=== PATIENT | male | born 1995 | race Caucasian/White ===

== ENCOUNTER 2019-04-17 16:41 | Emergency (ER) | payer BC, MEDICAID, SELFPAY ==
[2019-04-17 16:42] VITALS: BP 145/78; PULSE 123; RESP 15; TEMP 36.6; O2SAT 98; BMI 19.4
--- NOTE | 2019-04-17 16:59 | EKG12_ITS ---
Test Reason : SOB Blood Pressure : / mmHG Vent. Rate : 088 BPM Atrial Rate : 088 BPM P-R Int : 114 ms QRS Dur : 094 ms QT Int : 356 ms P-R-T Axes : 067 013 039 degrees QTc Int : 430 ms Normal sinus rhythm Normal ECG Confirmed by ADARSH TORRE ([id number]), science editor ZIYAD FITZPATRICK ([id number]) on 04/24/2019 9:05:27 AM Referred By: RICK Confirmed By:ADARSH TORRE
[2019-04-17 17:08] VITALS: RESP 16
--- NOTE | 2019-04-17 17:17 | ED.VIS.GEN ---
History of Present Illness Chief Complaint: Anxiety Informant: Patient Onset: Weeks - 6 Narrative: Patient comes in for evaluation of racing heart symptoms has been intermittent for the past 6 weeks however has been more frequent recently. States would last minutes however sometimes would be less. States 2 days ago had severe symptoms where he had to get on his knees for symptoms to resolve. No syncopal episodes. No chest pains. States would feel short of breath with it. Admits to tobacco history. No recent travel, surgeries, or immobilizations. No history of PE or DVT. Denies any recreational drug use. Reports he drinks coffee 1 to 2 cups a day and that is normal for him. Reports has history of trouble sleeping. He denies any increasing stressors. He states due to symptoms 2 days ago, he did online research and noted could be anxiety induced. Reports he called [facility], however he is currently staying with significant other in the area decided to come here for evaluation. States had mild racing heart in triage. No suicidal homicidal ideations. No past medical history. Prior similar symptoms: No Past Medical History - Allergies and Home Meds Allergies/Adverse Reactions: Allergies No Known Allergies Allergy (Verified 04/17/19 16:45) Primary Care Physician: NOT,DEFINED [NON-STAFF] - Smoking Status: Current some day smoker Review of Systems General: Denies: Chills, Fever, Sweats Eyes: Denies: Visual changes - bilaterally, Diplopia ENT: Denies: Rhinorrhea, Sore throat Cardiovascular: Reports: Palpitations, Heart racing. Denies: Chest pain Respiratory: Denies: Dyspnea, Cough, Dyspnea on exertion Gastrointestinal: Denies: Abdominal pain, Nausea, Vomiting, Diarrhea, Melena, Hematochezia Genitourinary: Denies: Dysuria, Hematuria, Frequency Musculoskeletal: Denies: Back pain, Extremity Pain Skin: Denies: Rash, Wounds Neurological: Denies: Headache, Weakness, Numbness Physical Exam Vital Signs/Narrative: Vital Signs Temp Pulse Resp BP Pulse Ox 04/17/19 17:08 16 04/17/19 16:42 97.9 F 123 H 15 145/78 H 98 Inital Vital Signs reviewed: Yes General: Well nourished, Well developed, No Acute Distress Head: Normocephalic, Atraumatic Eyes: Perrl, EOMI ENT: Moist mucous membranes, No rhinorrhea Neck: Supple, Nontender Cardiovascular: Regular rate, Regular rhythm, No murmurs Respiratory: No distress, CTA bilaterally, Chest nontender Abdomen: Soft, Nontender, Nondistended, Normal bowel sounds Back: Nontender, Normal Inspection Extremities: Nontender, No edema Skin: Normal color, No rash Neurological: Alert, Oriented x3, Cranial nerves II-XII grossly intact, Normal Strength, Normal Sensation Psychological: Normal affect, Normal Mood Diagnostic/Tx/Re-eval - EKG Initial EKG Interpretation: Sinus Rhythm - Sinus rate of 88, no ST or T wave changes. QTc 430. - Medical Decision Making Initial discussed with patient, appears to have palpitations I would be more frequent. EKG however notes sinus rhythm with a normal heart rate. Patient set up with a 48-hour Holter monitor. Given follow-up as an outpatient further testing. Discussed decreasing caffeine intake. After nursing discussed with patient he admits that there is been increasing stressors. Social work did see him in the ED will give him follow-up with 180 as an outpatient for further discussion. Patient not suicidal homicidal. Follow-up was all given to the patient. All questions were answered. ED Disposition - Plan for ED Patient: Disposition: Home or Assisted Living Diagnosis: Palpitations, Anxiety Instructions: Anxiety Reaction, Palpitations Referrals: Judie Bautista MD [STAFF PHYSICIAN] - 5-7 Days Additional Instructions: Wear the Holter monitor for 2 days, return. Follow-up as an outpatient. Follow-up with 180 as discussed with social work also.
--- NOTE | 2019-04-17 17:50 | CM.ED ---
SOCIAL WORK INFORMANT: NURSE REASON FOR REFERRAL: MENTAL HEALTH CHIEF COMPLIANT: PATIENT PRESENTS TO EMERGENCY DEPARTMENT WITH ANXIETY. PATIENT STATES STARTS TO FEEL LIKE HE IS HAVING A PANIC ATTACK. PATIENT REPORTS HEART WAS RACING AND FELT LIKE I WAS GOING TO . LIVING SITUATION: PATIENT REPORTS LIVES HOME WITH SIGNIFICANT OTHER AND DAUGHTER. FINANCIAL: LIMITED INCOME. PATIENT CURRENTLY IS SELF-PAY. PATIENT REPORTS HAS TURNED IN INFORMATION FOR MEDICAID. PATIENT GIVEN CONTACT NUMBER FOR [facility] TO CHECK ON STATUS. MENTAL HEALTH HISTORY/TREATMENT: PATIENT REPORTS BELIEVES TO HAVE ALWAYS HAD ANXIETY. PATIENT STATES ANXIETY HAS BECOME WORSE SINCE RELEASE FROM [facility]. PATIENT REPORTS WAS RELEASED END OF 2015 AFTER SERVING 2 YEARS. PATIENT REPORTS SINCE THEN HAS BEEN HAVING TROUBLE SLEEPING, VIVID DREAMS OF BEING LOCKED UP. PATIENT STATES BELIEVES TO HAVE PTSD FROM TIME SPENT IN [facility]. PATIENT DENIES ANY PREVIOUS TREATMENT. SUBSTANCE ABUSE HISTORY: PATIENT REPORTS RECOVERING HEROIN ADDICT. PATIENT STATES DRUG USE WAS THE REASON HE WAS IN [facility]. PATIENT STATES WHEN THE ANXIETY GETS BAD, FEELS LIKE USING WOULD HELP. ASSESSMENT: MET WITH PATIENT IN ROOM. INTRODUCED ROLE AND REASON FOR REFERRAL. PATIENT EXPLAINED TIME SPENT IN [facility] AND HOW LIFE HAS BEEN SINCE RELEASE. PATIENT REPORTS IS RECOVERING HEROIN ADDICT AND HAS HAD TIMES OF RELAPSE. DISCUSSED TREATMENT OPTIONS AND PROVIDED PATIENT WITH INFORMATION [facility]. PATIENT DOES NOT HAVE PRIMARY CARE PHYSICIAN. LIST OF LOCAL PRIMARY CARE PROVIDERS GIVEN. PATIENT TO FOLLOW UP WITH [facility] [employer] REGARDING MEDICAID. ENCOURAGEMENT AND EMOTIONAL SUPPORT PROVIDED. UPDATED DR. CABRERA AND NURSE ON THE ABOVE. PLAN: HOME WITH RESOURCES PROVIDED. Daisy CERRATO MSW, SUPERVISOR [employer].
[2019-04-17 18:26] VITALS: RESP 18
== END 2019-04-17 18:26 | disposition home or self-care (01) ==
PROVIDERS: Emergency Provider Emergency Medicine
DX: R00.2 Palpitations (principal); F41.9 Anxiety disorder, unspecified; F17.200 Nicotine dependence, unspecified, uncomplicated
CPT/HCPCS: 93005; 99282

== ENCOUNTER → 2019-04-17 18:17 | Outpatient (CLI) | payer BC, MEDICAID, SELFPAY ==
[2019-04-17 16:42] VITALS: BMI 19.4
== END ==
PROVIDERS: Referring Provider Emergency Medicine; Visit Provider Emergency Medicine
DX: R00.2 Palpitations (principal)
CPT/HCPCS: 93225; 93226

== ENCOUNTER → 2020-10-01 13:03 | Outpatient (CLI) | payer BC, MEDICAID, SELFPAY ==
[2020-09-13 08:41] VITALS: BMI 18.9
[2020-10-01 13:48] LABS: Absolute Lymphocyte Count 2.25 X10^3/uL (0.83-4.51); Absolute Neutrophil Count 1.9 X10^3/uL (2.0-7.7); Basophil# 0.06 X10^3/uL; Basophil% 1.2 % (0-1); Eosinophil# 0.47 X10^3/uL; Eosinophils% 9.1 % (0-5); Hematocrit 44.2 % (40-54); Hemoglobin 14.6 g/dL (13.0-16.5); Lymphocyte # 2.25 X10^3/ul (4.0); Lymphocyte % 43.4 % (19-41); Mean Corpuscular Hgb 27.7 pg (27.0-32.0); Mean Corpuscular Volume 83.9 fL (80-94); Mean Platelet Vol. 9.5 fl (6.2-12.0); Monocyte# 0.53 X10^3/uL; Monocyte% 10.2 % (0-10); NRBC Flagged by Analyzer 0 % (0-5); Neutrophil # 1.87 X10^3/uL (2.7-7.7); Neutrophil % 35.9 % (47-70); Platelet Count 207 K/mm3 (150-450); RBC Distribution Width CV 13.2 % (11.6-14.6); Red Blood Count 5.27 M/mm3 (4.6-6.2); White Blood Count 5.2 K/mm3 (4.4-11.0)
[2020-10-01 13:53] LABS: International Normalized Ratio 1.1; Prothrombin Time (Protime)PT. 13.7 SECONDS (11.7-14.9)
[2020-10-01 14:18] LABS: AST(SGOT) 440 U/L (15-37); Alanine Aminotransfer ALT/SGPT 1025 U/L (16-61); Albumin, Serum 4.2 g/dL (3.2-5.0); Alkaline Phosphatase 79 U/L (45-117); Anion Gap 4 (5-15); BUN 6 mg/dL (7-18); BUN/Creat Ratio 7.5 RATIO (10-20); Bilirubin, Direct 0.27 mg/dL (0.00-0.30); Calcium,Total 9.3 mg/dL (8.5-10.1); Chloride 101 mmol/L (98-107); Cholesterol 141 mg/dL (200); EST Glomerular Filtration Rate 125 mL/min (>60); Est Glom Filt Rate - Afr Amer 151 mL/min (>60); Globulin 4.4 g/dL (2.2-4.2); Glucose 82 mg/dL (74-106); Potassium 3.6 mmol/L (3.5-5.1); Protein, Total 8.6 g/dL (6.4-8.2); Sodium Level 135 mmol/L (136-145); Triglycerides 34 mg/dL
[2020-10-01 14:32] LABS: HIV - WCH Non-Reactive (Nonreactive); Hepatitis B Surface Antibody Non-Reactive; Hepatitis B Surface Antigen Non-Reactive (Nonreactive); Syphilis Antibodies Non-reactive
[2020-10-03 20:07] LABS: Comment 2b (.); HCV Quant. RNA PCR 551000 IU/mL (.); Hepatitis B Core Ab Total Negative (Negative)
[2020-10-04 12:29] LABS: HCV log 10 5.741 (.); Hepatitis A AB, Total Positive (Negative)
== END ==
PROVIDERS: Referring Provider Internal Medicine Infectious Disease; Visit Provider Internal Medicine Infectious Disease
DX: B18.2 Chronic viral hepatitis C (principal)
CPT/HCPCS: 36415; 80053; 82248; 82465; 84478; 85025; 85610; 86703; 86704; 86706; 86708; 86780; 87340; 87522; 87902

== ENCOUNTER 2022-05-03 17:30 | Emergency (ER) | payer MEDICAID, SELFPAY ==
[2022-05-03 17:31] VITALS: BP 129/80; PULSE 77; RESP 16; TEMP 36.3; O2SAT 100; BMI 19.7
--- NOTE | 2022-05-03 17:49 | ED.VIS.GI ---
HPI HPI - GI History of Present Illness Chief Complaint: Abd Pain Informant: patient Abdominal Pain/Flank Pain Onset: Days (3) Timing: Continuous Quality: Dull Location: Diffuse Worsened by: Movement and - (Bending forward) Relieved by: Nothing Nausea/Vomiting/Emesis GI Symptom: Negative for Nausea or Vomiting Diarrhea/Melena/Hematochezia GI Symptom: Negative for Diarrhea, Melena or Hematochezia Associated Symptoms Associated Symptoms: Positive for Frequency; Negative for Dysuria or Hematuria Narrative Narrative: Patient presents with abdominal pain that has been gradually getting worse over the last 3 days. Patient states the pain is diffuse across his abdomen. Patient describes the pain as dull. Patient states pain radiates into his back. Patient states it is worse whenever he bends forward and moves. Patient states it is better when he is able to remain still. Patient denies any nausea or vomiting. Patient denies any diarrhea, melena, or hematochezia. Patient admits to some urinary frequency but denies any dysuria or hematuria. Patient denies any fevers or chills. Patient states he has been feeling somewhat constipated over the past few days. [facility] Medical History (Updated 05/03/22 @ 20:[address] Kel Ventura DO) Hepatitis A Hepatitis C Liver disease Lower back pain SOB (shortness of breath) Home Medications buprenorphine 8 mg-naloxone 2 mg sublingual film (Suboxone) 2 film sublingual DAILY 09/13/20 [History Last Taken Unknown] Allergy/AdvReac Type Severity Reaction Status Date / Time No Known Allergies Allergy Verified 05/03/22 17:31 Family History (Updated 09/13/20 @ 08:44 by Xena Marcelino RN) Father Heart disease kindney stones Mother Bipolar 1 disorder Social History Smoking Status: Current every day smoker tobacco type: cigarettes ROS ROS ED Constitutional Constitutional ED: Denies chills or fever(s) Eyes Eyes: Denies blurry vision or change in vision ENT ENT ED: Denies rhinorrhea or sore throat Cardiovascular Cardiovascular: Denies chest pain or palpitations Respiratory/Chest Respiratory/Chest: Denies cough or dyspnea Gastrointestinal Gastrointestinal: Reports abdominal pain and constipation; Denies diarrhea, melena, nausea or vomiting Genitourinary Genitourinary ED: Denies dysuria or hematuria Musculoskeletal Musculoskeletal: Reports back pain; Denies neck pain Integumentary Denies abscess or rash Neurologic Neurologic: Denies headache(s) or weakness Allergic/Immunologic Allergic/Immunologic ED: Denies mouth swelling or urticaria EXAM Physical Exam Const Vital Signs: 05/03/22 17:31 Temperature 97.3 F L Temperature Source Temporal Pulse Rate 77 Respiratory Rate 16 Blood Pressure 129/80 H Blood Pressure Mean 96 Pulse Ox 100 Oxygen Delivery Method Room Air Positive well nourished and well developed General Appearance ED: well developed HEENT Reports moist mucous membranes Neck supple and no JVD Resp normal respiratory effort and clear to auscultation bilaterally Cardio regular rate, regular rhythm and no murmurs GI normal to inspection, nondistended, normoactive bowel sounds Palpation: soft and tender epigastric, LLQ, RLQ, LUQ, RUQ, periumbilical and suprapubic Extremity normal to inspection General Extremety ED: Negative for edema or tenderness General Extremity: Negative for edema Neuro oriented x3, CN's II-XII intact bilaterally, moves all extremities and no sensory deficits noted Sensorium / Orientation: alert Motor Exam: strength 5/5 throughout Psych mental status grossly normal Skin no rashes or lesions noted MDM MDM MDM Narrative Medical decision making narrative: Patient given IV fluids, morphine, and Zofran. CBC was within normal limits. Comprehensive metabolic profile was essentially within normal limits. Lipase was normal. Urinalysis does not show any evidence of urinary tract infection or hematuria. CT scan of the abdomen pelvis was obtained. There is moderate stool in the colon. There is no evidence of obstruction. There is no evidence of appendicitis. There is no acute abnormality noted. Patient was advised of his findings. Patient was instructed to use MiraLAX at home. Patient was instructed to follow-up with his primary care physician in 5 to 7 days. Patient understood and was agreeable with the plan. All questions were answered. Lab Data Attestation: I reviewed the patient's lab results. Labs: Laboratory Results - last 24 hr 05/03/22 05/03/22 05/03/22 18:10 18:10 19:00 WBC 8.3 RBC 5.27 Hgb 15.3 Hct 43.7 MCV 82.9 MCH 29.0 MCHC 35.0 RDW Std Deviation 37.5 RDW Coeff of Joelle 12.6 Plt Count 211 MPV 9.1 Immature Gran % (Auto) 0.200 Neut % (Auto) 63.7 Lymph % (Auto) 24.1 [place] % (Auto) 5.7 Eos % (Auto) 5.5 H Baso % (Auto) 0.8 Absolute Neuts (auto) 5.3 Absolute Lymphs (auto) 2.00 Nucleated RBC % 0 Sodium 140 Potassium 4.2 Chloride 104 Carbon Dioxide 29.0 Anion Gap 7 BUN 10 Creatinine 0.78 Estim Creat Clear Calc 125.22 Est GFR (MDRD) Af Amer 152 Est GFR (MDRD) Non-Af 126 BUN/Creatinine Ratio 12.7 Glucose 80 Calcium 9.1 Total Bilirubin 0.40 AST 26 ALT 35 Alkaline Phosphatase 65 Total Protein 8.3 H Albumin 4.1 Globulin 4.2 Albumin/Globulin Ratio 1.0 Lipase 111 Urine Color Yellow Urine Clarity Clear Urine pH 7.0 Ur Specific [place] 1.010 Urine Protein Negative Urine Glucose (UA) Normal Urine Ketones Negative Urine Occult Blood Negative Urine Nitrite Negative Urine Bilirubin Negative Urine Urobilinogen Normal Ur Leukocyte Esterase Negative Urine RBC 0 SEEN Urine WBC 0 SEEN Ur Squamous Epith Cells 0-5 SEEN Urine Bacteria 0 SEEN Urine Mucus 0 SEEN Radiography Diagnostic Testing: Clinical Impression(s) from Imaging Studies Abdomen/Pelvis CT 05/03/22 17:54 IMPRESSION: Moderate stool in the colon which may represent constipation. No other acute abnormalities are identified. Electronically Signed: Jj Womack MD at 19:41 EST Reading Location ID and State: [address] [place] [address] Tel , Service support , Discharge Plan Triage Chief Complaint: Abd Pain ED Provider: Kel Ventura Dx/Rx/DC Orders Clinical Impression: Abdominal pain, Constipation Instructions: ED Constipation (Adult), ED Abdominal Pain Unkn Cause Male... Prescriptions: No Action buprenorphine-naloxone [Suboxone] 8-2 mg film 2 film SL DAILY Rx Instructions: place 1 strip/tab under (each) side of tongue Primary Care Provider: Care Physician,No Primary Referrals: Care Physician,No Primary [Primary Care Provider] - Disposition Disposition: Home, Self Care
--- NOTE | 2022-05-03 17:54 | CT_ITS ---
EXAM: CT ABDOMEN AND PELVIS WITH INTRAVENOUS CONTRAST CLINICAL INDICATION: Abdominal pain -- IV PO Contrast TECHNIQUE: Helically acquired images were obtained of the abdomen and pelvis with intravenous contrast. This CT exam was performed using one or more of the following dose reduction techniques: automated exposure control, adjustment of the mA and/or kV according to patient size, and/or use of iterative reconstruction technique. This report was created using AOL report generation technology. CONTRAST: Oral and amp; IV Gastrografin and amp; 100mL Isovue-370 COMPARISON: None. FINDINGS: LOWER THORAX: Unremarkable. Lung bases are clear. No cardiomegaly. No significant pericardial effusion. ABDOMEN: LIVER: Unremarkable. Homogeneous. No focal mass. GALLBLADDER AND BILE DUCTS: Unremarkable. No calcified gallstones. No gallbladder distention or wall edema. No intra- or extrahepatic biliary ductal dilation. PANCREAS: Unremarkable. No focal cystic or solid mass. SPLEEN: Unremarkable. Normal size without focal cystic or solid mass. ADRENALS: Unremarkable. No nodules. KIDNEYS AND URETERS: Unremarkable. Normal renal size and position. No hydronephrosis. STOMACH AND BOWEL: There is moderate stool seen throughout the colon which may represent constant patient. No stomach or bowel distention. No focal inflammatory change. PELVIS: APPENDIX: No evidence of acute appendicitis. BLADDER: Unremarkable. REPRODUCTIVE: Unremarkable as visualized. No mass. ABDOMEN and PELVIS: INTRAPERITONEAL SPACE: Unremarkable. No ascites or other fluid collection. No free air. BONES/JOINTS: Unremarkable. No suspicious lytic or blastic abnormality. SOFT TISSUES: Unremarkable. No discrete abdominal or pelvic wall hernia. VASCULATURE: Unremarkable. Abdominal aorta is non-dilated. LYMPH NODES: Unremarkable. No enlarged lymph nodes. CT/Abdomen/Pelvis WITH Contrast IMPRESSION: Moderate stool in the colon which may represent constipation. No other acute abnormalities are identified. Electronically Signed: Jj Womack MD at 19:41 EST ,
[2022-05-03 18:17] LABS: Absolute Neutrophil Count 5.3 X10^3/uL (2.0-7.7); Basophil# 0.07 X10^3/uL; Basophil% 0.8 % (0-1); Eosinophil# 0.46 X10^3/uL; Eosinophils% 5.5 % (0-5); Hematocrit 43.7 % (40-54); Hemoglobin 15.3 g/dL (13.0-16.5); Lymphocyte % 24.1 % (19-41); Mean Corpuscular Volume 82.9 fL (80-94); Mean Platelet Vol. 9.1 fl (6.2-12.0); Monocyte# 0.47 X10^3/uL; Monocyte% 5.7 % (0-10); NRBC Flagged by Analyzer 0 % (0-5); Neutrophil # 5.28 X10^3/uL (2.7-7.7); Neutrophil % 63.7 % (47-70); Platelet Count 211 K/mm3 (150-450); RBC Distribution Width CV 12.6 % (11.6-14.6); RBC Distribution Width SD 37.5 fl (35.1-43.9); Red Blood Count 5.27 M/mm3 (4.6-6.2); White Blood Count 8.3 K/mm3 (4.4-11.0)
[2022-05-03 18:33] LABS: AST(SGOT) 26 U/L (15-37); Alanine Aminotransfer ALT/SGPT 35 U/L (16-61); Albumin, Serum 4.1 g/dL (3.2-5.0); Alkaline Phosphatase 65 U/L (45-117); Anion Gap 7 (5-15); BUN 10 mg/dL (7-18); BUN/Creat Ratio 12.7 RATIO (10-20); Calcium,Total 9.1 mg/dL (8.5-10.1); Chloride 104 mmol/L (98-107); Creatinine, Serum 0.78 mg/dL (0.70-1.30); EST Glomerular Filtration Rate 126 mL/min (>60); Est Glom Filt Rate - Afr Amer 152 mL/min (>60); Estimated Creatinine Clearance 125.22 ml/min; Globulin 4.2 g/dL (2.2-4.2); Glucose 80 mg/dL (74-106); Lipase 111 U/L (73-393); Potassium 4.2 mmol/L (3.5-5.1); Protein, Total 8.3 g/dL (6.4-8.2); Sodium Level 140 mmol/L (136-145)
[2022-05-03] MEDS: 0.9% Normal Saline 1,000 ML 1000 ML IV (18:49)
[2022-05-03] MEDS: Ondansetron 4 MG/2 ML Vial IV (18:49)
[2022-05-03] MEDS: Morphine 4 MG/ML Syringe IV (18:49)
[2022-05-03 19:06] LABS: Bacteria 0 SEEN /hpf (None Seen); Mucous, Urine 0 SEEN /hpf (<or=2+); Red Blood Cells-Urine 0 SEEN /hpf (0-5); White Blood Cells 0 SEEN /hpf (0-5)
[2022-05-03 19:10] LABS: Color, Urine Yellow (Yellow); Glucose, Dipstick Normal (Normal); Ketone-Dipstick Negative (Negative); Leukocyte Esterase-Dipstick Negative /ul (Negative); Nitrite-Dipstick Negative (Negative); Occult Blood-Urine Negative /ul (Negative); Protein-Dipstick Negative (Negative); Urine Bilirubin Dipstick Negative (Negative); Urine Clarity Clear (Clear); Urine Urobilinogen Normal (Normal)
[2022-05-03 19:23] LABS: Squamous Epithelial Cells - UA 0-5 SEEN /hpf (0-5)
[2022-05-03 21:00] VITALS: BP 132/78; PULSE 78; RESP 16; O2SAT 98
== END 2022-05-03 21:08 | disposition home or self-care (01) ==
PROVIDERS: Emergency Provider Emergency Medicine; Visit Provider Emergency Medicine
DX: R10.9 Unspecified abdominal pain (principal); R35.0 Frequency of micturition; F17.210 Nicotine dependence, cigarettes, uncomplicated; K59.00 Constipation, unspecified
CPT/HCPCS: 74177; 80053; 81001; 83690; 85025; 96361; 96374; 96375; 99283; J7030; Q9967; J2405

== ENCOUNTER 2024-03-18 00:19 | Observation (INO) | payer MEDICAID, SELFPAY ==
[2024-03-18 00:21] VITALS: BP 137/95; PULSE 88; RESP 18; TEMP 35.7; O2SAT 100; BMI 21.1
[2024-03-18 02:20] VITALS: BP 117/82; PULSE 77; RESP 12; O2SAT 99
--- NOTE | 2024-03-18 02:59 | EKG12_ITS ---
Test Reason : PALPS Blood Pressure : / mmHG Vent. Rate : 087 BPM Atrial Rate : 087 BPM P-R Int : 114 ms QRS Dur : 082 ms QT Int : 342 ms P-R-T Axes : 067 088 057 degrees QTc Int : 411 ms Normal sinus rhythm with sinus arrhythmia Normal ECG Confirmed by DAWSON PALOMINO, OTTO ([id number]), associate editor TATIANA GRIFFIN ([id number]) on 03/21/2024 2:03:09 PM Referred By: Confirmed By:OTTO OSMAN MD
[2024-03-18 03:17] VITALS: BP 128/74; PULSE 85; RESP 18; TEMP 36.9; O2SAT 97
[2024-03-18 03:18] LABS: Absolute Neutrophil Count 6.6 X10^3/uL (2.0-7.7); Basophil# 0.05 X10^3/uL; Basophil% 0.5 % (0-1); Eosinophil# 0.18 X10^3/uL; Eosinophils% 1.7 % (0-5); Hematocrit 44.4 % (40-54); Hemoglobin 15.4 g/dL (13.0-16.5); Lymphocyte % 25.5 % (19-41); Mean Corp Hgb Conc 34.7 g/dL (32-36); Mean Corpuscular Hgb 28.7 pg (27.0-32.0); Mean Corpuscular Volume 82.8 fL (80-94); Mean Platelet Vol. 9.5 fl (6.2-12.0); Monocyte# 1.06 X10^3/uL; NRBC Flagged by Analyzer 0 % (0-5); Neutrophil # 6.56 X10^3/uL (2.7-7.7); Neutrophil % 62.1 % (47-70); Platelet Count 255 K/mm3 (150-450); RBC Distribution Width CV 12.7 % (11.6-14.6); Red Blood Count 5.36 M/mm3 (4.6-6.2); White Blood Count 10.6 K/mm3 (4.4-11.0)
[2024-03-18] MEDS: LORazepam 1 MG Tablet PO (03:23)
[2024-03-18 03:35] LABS: Amphetamine Urine VISTA NEGATIVE (<1000 ng/mL); Barbiturate Urine VISTA NEGATIVE (< 200 ng/mL); Benzodiazepine Urine VISTA NEGATIVE (< 200 ng/mL); Cocaine Urine VISTA NEGATIVE (< 300 ng/mL); Ecstacy Urine VISTA NEGATIVE (< 500 ng/mL); Methadone Urine VISTA NEGATIVE (< 300 ng/mL); PCP Urine VISTA NEGATIVE (< 25 ng/mL); THC Urine VISTA NEGATIVE (< 50 ng/mL); Vista UDS pH Range 6
[2024-03-18] MEDS: Mag Hydrox/Al Hydrox/Simeth 30 ML UDC PO (03:43)
[2024-03-18] MEDS: Lidocaine 2% Viscous15 ML UDC 15 ML PO (03:43)
[2024-03-18 04:00] VITALS: PULSE 100; RESP 18; O2SAT 97
[2024-03-18 04:05] LABS: Anion Gap 4 (5-15); BUN 8 mg/dL (7-18); BUN/Creat Ratio 8.7 RATIO (10-20); Calcium,Total 9.4 mg/dL (8.5-10.1); Chloride 106 mmol/L (98-107); Creatinine, Serum 0.92 mg/dL (0.70-1.30); EST Glomerular Filtration Rate 103 mL/min (>60); Est Glom Filt Rate - Afr Amer 124 mL/min (>60); Estimated Creatinine Clearance 111.73 ml/min; Glucose 112 mg/dL (74-106); Potassium 3.8 mmol/L (3.5-5.1); Sodium Level 137 mmol/L (136-145)
--- NOTE | 2024-03-18 04:05 | ED.VIS.CHEST ---
HPI History of Present Illness Chief Complaint: Palpitations Narrative Narrative: Patient is a 28-year-old male with past medical history of hepatitis A, hepatitis C, low back pain who presented to the emergency department with a chief complaint of concerns of withdrawal. Patient states that he normally snorts fentanyl however he states that he believes that he had obtained a different drug and is now going through withdrawal. He states that he tried take muscle relaxers for his restless legs. Patient states that he is not feeling well and he wants to go through detox. Denies any IV drug use. [facility] Medical History Hepatitis C Hepatitis A Lower back pain Liver disease SOB (shortness of breath) Home Medications ?Medication ?Instructions ?Recorded ?Last Taken ?Type buprenorphine 8 mg-naloxone 2 mg 2 film sublingual DAILY 09/13/20 Unknown History sublingual film (Suboxone) Allergy/AdvReac Type Severity Reaction Status Date / Time No Known Allergies Allergy Verified 03/18/24 00:21 Family History Father Heart disease kindney stones Mother Bipolar 1 disorder Social History Smoking Status: Current every day smoker tobacco type: cigarettes ROS ROS ED ROS Narrative Constitutional: Denies any fevers, chills, headaches, lightness, dizziness Eyes: Denies change in vision double vision blurry vision Cardiovascular: Denies chest pain or palpitations Respiratory: Denies cough or wheezing shortness of breath Abdomen: Denies any abdominal pain nausea vomit diarrhea : Denies any urinary symptoms Neurological: Denies numbness, weakness, tingling Musculoskeletal: States he has chronic back pain Skin: Denies rashes or lesions EXAM Physical Exam Narrative Exam Narrative: General: Patient lying in bed rest comfortably did not appear to be in acute distress Head: Atraumatic, normocephalic Eyes: PERRL bilaterally, EOMI bilateral, no conjunctival injection noted Neck: Soft, supple, trachea midline Cardiovascular: Regular rate and rhythm no murmurs gallops rubs noted Respiratory: Clear to auscultation bilaterally no rales rhonchi or wheezes noted Abdomen: Soft, nondistended, no tenderness palpation Extremities: +5/5 strength noted in the bilateral upper and lower extremities, no pedal edema on exam, radial pulses +2/4 in the bilateral upper extremities Neurological: Patient is following commands knew that he was at [facility] there is 2023 Skin: Warm, dry, intact Const Vital Signs: 03/18/24 00:21 03/18/24 02:20 03/18/24 02:39 Temperature 96.3 F L Temperature Source Temporal Pulse Rate 88 77 Respiratory Rate 18 12 Respiratory Effort Normal Non-Labored Blood Pressure 137/95 H 117/82 H Blood Pressure Mean 109 93 Pulse Ox 100 99 Oxygen Delivery Method Room Air Room Air 03/18/24 03:17 03/18/24 04:00 Temperature 98.5 F Temperature Source Pulse Rate 85 100 Respiratory Rate 18 18 Respiratory Effort Blood Pressure 128/74 H Blood Pressure Mean 92 Pulse Ox 97 97 Oxygen Delivery Method Room Air MDM MDM MDM Narrative Medical decision making narrative: Patient is a 28-year-old male who presented for detox. Patient will have workup performed here on the differential diagnose includes but not limited to withdrawal, anxiety. Once workup is seen and reviewed he will be reevaluated. Patient given Ativan and a GI cocktail as he states he is having reflux of type symptoms. Patient states that he last used fentanyl this morning. Patient's CBC reviewed showed no evidence leukocytosis white blood count normal at 10.6, hemoglobin stable 15.4, platelet count normal at 255. Patient sodium normal 137, potassium normal 3.8, creatinine normal at 0.92. Patient's drug screen was negative, alcohol level was 4. At this point time patient is requesting detox therefore he will be admitted to the hospital. Did discuss case with Dr. Renee who accept patient for admission. Patient notified with all question concerns answered. Lab Data Labs: Laboratory Results - last 24 hr 03/18/24 03/18/24 03:07 03:09 WBC 10.6 RBC 5.36 Hgb 15.4 Hct 44.4 MCV 82.8 MCH 28.7 MCHC 34.7 RDW Std Deviation 38.0 RDW Coeff of Joelle 12.7 Plt Count 255 MPV 9.5 Immature Gran % (Auto) 0.200 Neut % (Auto) 62.1 Lymph % (Auto) 25.5 [place] % (Auto) 10.0 Eos % (Auto) 1.7 Baso % (Auto) 0.5 Absolute Neuts (auto) 6.6 Absolute Lymphs (auto) 2.70 Nucleated RBC % 0 Sodium 137 Potassium 3.8 Chloride 106 Carbon Dioxide 27.0 Anion Gap 4 L BUN 8 Creatinine 0.92 Estim Creat Clear Calc 111.73 Est GFR (MDRD) Af Amer 124 Est GFR (MDRD) Non-Af 103 BUN/Creatinine Ratio 8.7 L Glucose 112 H Calcium 9.4 Urine Opiates Screen NEGATIVE Urine Methadone Screen NEGATIVE Ur Barbiturates Screen NEGATIVE Ur Phencyclidine Scrn NEGATIVE Ur Amphetamines Screen NEGATIVE MDMA (Ecstasy) Screen NEGATIVE U Benzodiazepines Scrn NEGATIVE Urine Cocaine Screen NEGATIVE U Cannabinoids Screen NEGATIVE Ur Drug Screen Comment Ethyl Alcohol 4.0 Discharge Plan Triage Chief Complaint: Palpitations ED Provider: Hipolito Garrison Dx/Rx/DC Orders Clinical Impression: Opiate withdrawal Primary Care Provider: Care Physician,No Primary
--- NOTE | 2024-03-18 05:02 | HP.PCM.HOS_ITS ---
[facility] - General General Date of Admission: 03/18/24 Date of Service: 03/18/24 Chief Complaint: Palpitations and Leg Tremors with suspected Fentanyl Withdrawal. HPI Narrative CHARLY KELLER, is a 28 M with a past medical history of tobacco abuse, hepatitis, A, hepatitis C and history of chronic opiate abuse with Fentanyl via snorting; also already on Suboxone who presents to [facility] ER complaining of palpitations and leg tremors with suspected fentanyl withdrawal. Mr. Keller reports his symptoms began approximately 6 hours prior to admission after he obtained what he thought was fentanyl from his dealer and then immediately began to go into withdrawal with restless legs and palpitations with him now suspecting he snorted Xylazine (horse tranquilizer). He also admits to overall not feeling very well and wants to go through the opiate detoxification program. There was no report of fever, chills, diarrhea or constipation but he does admit to severe anxiety, nausea and heartburn but he does admit to persistent stuffiness in his Right nostril since his last use. In the ER he was diagnosed with acute opiate withdrawal in the setting of chronic opiate abuse complicated by severe anxiety and GI upset with nausea and heartburn and he was then admitted to the general medical floor for treatment under the opiate detoxification protocol for status expected to be greater than 2 midnights. [facility] Medical History Hepatitis C Hepatitis A Lower back pain Liver disease SOB (shortness of breath) Home Medications ?Medication ?Instructions ?Recorded ?Last Taken ?Type buprenorphine 8 mg-naloxone 2 mg 2 film sublingual DAILY 09/13/20 Unknown History sublingual film (Suboxone) Allergy/AdvReac Type Severity Reaction Status Date / Time No Known Allergies Allergy Verified 03/18/24 00:21 Family History Father Heart disease kindney stones Mother Bipolar 1 disorder Social History Smoking Status: Current every day smoker tobacco type: cigarettes ROS ROS Narrative Review of systems: General: Patient denies fever or chills. HENT: Denies headache, denies stuffy nose, denies sore throat EYES: Denies changes in vision or discharge from eyes. Resp: Denies cough, denies shortness of breath Cardiac: Patient admits to palpitations but he denies chest pain. GI: Patient admits to GI upset with nausea and heartburn. : Denies changes in urination Extremity: Denies swelling Musculoskeletal: Feels somewhat generally weak and unwell but denies arthralgias or myalgias. Neuro: Patient denies headache, paresthesias or focal neurologic deficits. Heme: Denies any bleeding or bruising Skin: Denies rashes Psychiatric: Patient admits to heightened anxiety that is better as he received IV Ativan in the ER. He denies suicidal or homicidal ideation. Endocrine: No polyuria, polydipsia or polyphagia. The rest of the 14 point ROS was negative except for positives in HPI. Vital Signs Vital Signs Vital Signs: 03/18/24 00:21 03/18/24 02:20 03/18/24 02:39 Temperature 96.3 F L Temperature Source Temporal Pulse Rate 88 77 Respiratory Rate 18 12 Respiratory Effort Normal Non-Labored Blood Pressure 137/95 H 117/82 H Blood Pressure Mean 109 93 Pulse Ox 100 99 Oxygen Delivery Method Room Air Room Air 03/18/24 03:17 03/18/24 04:00 Temperature 98.5 F Temperature Source Pulse Rate 85 100 Respiratory Rate 18 18 Respiratory Effort Blood Pressure 128/74 H Blood Pressure Mean 92 Pulse Ox 97 97 Oxygen Delivery Method Room Air Weight Weight: 147 lb Body Mass Index (BMI) 21.1 Physical Exam Const alert, oriented x3 and average body habitus Constitutional Narrative: [id number] distress noted. General Appearance: cooperative HEENT normocephalic, head/scalp atraumatic, hearing grossly normal bilaterally and moist oral mucous membranes Eyes PERRL and EOMs intact bilaterally Neck no lymphadenopathy and supple Resp normal respiratory effort, no retractions, no use of accessory muscles and clear to auscultation bilaterally Cardio regular rate and regular rhythm GI normal to inspection, nondistended, normoactive bowel sounds, soft to palpation, non-tender and non-distended Extremity normal to inspection, full ROM and no clubbing, cyanosis or edema Skin Skin Narrative: Patient has no evidence of rash, jaundice or abscess. Neuro oriented x3, CN's II-XII intact bilaterally, moves all extremities and no focal motor deficits Sensorium / Orientation: awake, alert, oriented to person, oriented to place and oriented to time Speech: speech normal Psych Mood & Affect: anxious Results Medical Records Data Attestation: I reviewed the patient's medical records Lab / Micro Data Attestation: I reviewed the patient's lab results. 03/18/24 03:09 03/18/24 03:09 Labs: Laboratory Results - last 24 hr 03/18/24 03:07: Urine Opiates Screen NEGATIVE, Urine Methadone Screen NEGATIVE, Ur Barbiturates Screen NEGATIVE, Ur Phencyclidine Scrn NEGATIVE, Ur Amphetamines Screen NEGATIVE, MDMA (Ecstasy) Screen NEGATIVE, U Benzodiazepines Scrn NEGATIVE, Urine Cocaine Screen NEGATIVE, U Cannabinoids Screen NEGATIVE, Ur Drug Screen Comment 03/18/24 03:09: WBC 10.6, RBC 5.36, Hgb 15.4, Hct 44.4, MCV 82.8, MCH 28.7, MCHC 34.7, RDW Std Deviation 38.0, RDW Coeff of Joelle 12.7, Plt Count 255, MPV 9.5, Immature Gran % (Auto) 0.200, Neut % (Auto) 62.1, Lymph % (Auto) 25.5, [place] % (Auto) 10.0, Eos % (Auto) 1.7, Baso % (Auto) 0.5, Absolute Neuts (auto) 6.6, Absolute Lymphs (auto) 2.70, Nucleated RBC % 0, Sodium 137, Potassium 3.8, Chloride 106, Carbon Dioxide 27.0, Anion Gap 4 L, BUN 8, Creatinine 0.92, Estim Creat Clear Calc 111.73, Est GFR (MDRD) Af Amer 124, Est GFR (MDRD) Non-Af 103, BUN/Creatinine Ratio 8.7 L, Glucose 112 H, Calcium 9.4, Ethyl Alcohol 4.0 Assessment & Plan Assessment/Plan (1) Opiate withdrawal: (2) Opiate abuse, continuous: (3) Tobacco abuse: (4) History of hepatitis A: (5) History of hepatitis C: PLAN: Plan 1. Acute opiate withdrawal in the setting of chronic fentanyl abuse with snorting - Admit to general medical floor for treatment under the opiate detoxification protocol primarily consisting of Suboxone. Opiate cessation will be strongly encouraged. Give IV Zofran as needed nausea. Give oral ibuprofen as needed pain or fever. 2. Tobacco abuse complicating #1 - Tobacco cessation will be strongly encouraged with nicotine patch offered to control cravings. 3. History of hepatitis A and C - Noted. Check hepatitis profile to confirm. 4. DVT prophylaxis - Lovenox 40 mg subcu daily. Total time: Approximately 40 minutes. Charges/Coding Visit Charges Inpatient E&M: 82815 Init Hosp L1
[2024-03-18 06:51] VITALS: BMI 20.5
[2024-03-18 06:54] VITALS: BP 107/67; PULSE 69; RESP 14; TEMP 37; O2SAT 98
[2024-03-18] MEDS: Famotidine 20 MG Tablet PO (07:10)
[2024-03-18] MEDS: Dicyclomine 10 MG Capsule 20 MG PO (07:10)
[2024-03-18] MEDS: Gabapentin 300 MG Capsule PO (07:10)
[2024-03-18 07:51] VITALS: BP 128/70; PULSE 80; RESP 14; TEMP 36.5; O2SAT 97
[2024-03-18] MEDS: Buprenorphine HCl 2 MG TAB.SUBL 4 MG SL (08:02)
[2024-03-18] MEDS: Enoxaparin 40 MG/0.4 ML Syringe SC (08:02)
[2024-03-18] MEDS: Ensure Plus High Protein 120 ML LIQUID PO (08:08)
--- NOTE | 2024-03-18 09:20 | NURSING ---
pt left ama. paper signed papers
== END 2024-03-18 09:16 | disposition left against medical advice (07) ==
LOC: ED 02:47 → MS3 08:10
PROVIDERS: Admitting Provider Internal Medicine; Emergency Provider Emergency Medicine; Visit Provider Internal Medicine
DX: F11.13 Opioid abuse with withdrawal (principal); Z86.19 Personal history of other infectious and parasitic diseases; F17.210 Nicotine dependence, cigarettes, uncomplicated
CPT/HCPCS: 80048; 80307; 82077; 85025; 93005; 96372; 99221; 99283; G0378